=== PATIENT | female | born 1955 ===

== ENCOUNTER 2022-12-06 10:00 | Inpatient (IN) | payer OTHER ==
[~2022-12-06] VITALS: Ht 160 cm; Wt 79.4 kg
[2022-12-06] MEDS ORDERED: METFORMIN HCL1000 M2 PO (14:15)
[2022-12-06] MEDS ORDERED: LIPITOR20 MG PO (14:15)
[2022-12-06] MEDS ORDERED: GABAPENTIN100 MG (14:16)
[2022-12-06] MEDS ORDERED: LEVO-T25 MCG PO (14:16)
[2022-12-06] MEDS ORDERED: ACID REDUCER20 M1 PO (14:16)
[2022-12-12] MEDS ORDERED: HYOSCYAMINE0.125 M1 SL (10:22)
[2022-12-12] MEDS ORDERED: GABAPENTIN300 M2 PO (10:23)
== END 2022-12-12 11:21 | disposition home or self-care (01) | DRG 331 ==
LOC: SURH 12-09 07:00 → O/R 12-09 10:00 → SURH 12-09 21:25
PROVIDERS: ADMIT Surgery; ATTEND Surgery
PROC: 0DBP4ZZ Excision of Rectum, Percutaneous Endoscopic Approach (ICD-10-PCS; 2022-12-09)
PROC: 0DJD8ZZ Inspection of Lower Intestinal Tract, Via Natural or Artificial Opening Endoscopic (ICD-10-PCS; 2022-12-09)
PROC: 0DTN4ZZ Resection of Sigmoid Colon, Percutaneous Endoscopic Approach (ICD-10-PCS; principal; 2022-12-09 07:00)
DX: K57.32 Diverticulitis of large intestine without perforation or abscess without bleeding (principal); R19.4 Change in bowel habit; I10 Essential (primary) hypertension; Z20.822 Contact with and (suspected) exposure to COVID-19; E11.9 Type 2 diabetes mellitus without complications; Z79.4 Long term (current) use of insulin

== ENCOUNTER 2024-11-26 07:06 | Day surgery (SDC) | payer OTHER ==
[2024-11-22 10:54] LABS: HEMATOCRIT 39.4 % (36.0-45.00); HEMOGLOBIN 13.3 g/dL (12.0-15.00); MEAN CELL VOLUME 88.4 fL (80.00-100.00); MEAN CORPUSCULAR HEMOGLOBIN 29.9 pg (27.00-32.0); MEAN CORPUSCULAR HGB CONC 33.8 g/dl (32.0-36.0); PLATELET COUNT 202 K/uL (150-450); RED BLOOD COUNT 4.46 M/uL (4.00-6.00); RED CELL DISTRIBUTION WIDTH 13.9 % (11.5-14.5)
[2024-11-22 11:20] LABS: INR 1.03; PARTIAL THROMBOPLASTIN TIME 26.7 SECONDS (22.0-34.0); PROTHROMBIN TIME 11.2 SECONDS (9.0-11.5)
[2024-11-22 12:31] LABS: ALBUMIN 3.9 gm/dL (3.4-5.0); BILIRUBIN TOTAL 0.97 mg/dL (0.3-1.2); CALCIUM 9.6 mg/dL (8.5-10.1); CREATININE SERUM 0.64 mg/dL (0.55-1.02); GFR 92.28; GLOBULINA 3.7 G/DL (2.4-3.5); POTASSIUM 4.48 mEq/L (3.5-5.1); TOTAL PROTEIN 7.6 gm/dL (6.4-8.2)
[~2024-11-26 07:06] MED LIST: ACID REDUCER20 M1 PO; GABAPENTIN100 MG; GABAPENTIN300 M2 PO; HYOSCYAMINE0.125 M1 SL; LEVO-T25 MCG PO; LIPITOR20 MG PO; METFORMIN HCL1000 M2 PO
[2024-11-26] MEDS ORDERED: CEFTRIAXONE SODIUM 2,000 MG VIAL ONE (09:26)
[2024-11-26] MEDS ORDERED: METRONIDAZOLE/SODIUM CHLORIDE 500 MG/100 ML PIGGYBACK IV ONE (09:27)
[2024-11-26] MEDS ORDERED: BUPIVACAINE HCL/MPF 0.5% 30ML VIAL ONE (14:25)
[2024-11-26] MEDS ORDERED: LIDOCAINE HCL 1%/EPINEPHRINE 20ML VIAL IJ ONE ×3 (14:25→15:45)
[2024-11-26] MEDS ORDERED: BUPIVACAINE HCL/Mpf 0.5% 10ML VIAL ONE (15:29)
[2024-11-26] MEDS ORDERED: BUPIVACAINE HCL 30 ML VIAL IJ ONE (15:45)
[2024-11-26] MEDS ORDERED: TRAM1TAB98 PO (15:55)
== END 2024-11-26 17:40 | disposition home or self-care (01) ==
LOC: CIR.AMB 07:06
PROVIDERS: ATTEND Surgery
DX: R15.9 Full incontinence of feces (principal); R19.4 Change in bowel habit; K57.32 Diverticulitis of large intestine without perforation or abscess without bleeding; R10.32 Left lower quadrant pain; E78.5 Hyperlipidemia, unspecified; Z88.6 Allergy status to analgesic agent
CPT/HCPCS: 64581; 95972; C1778

== ENCOUNTER 2024-12-10 06:37 | Day surgery (SDC) | payer OTHER ==
[~2024-12-10 06:37] MED LIST changes: +TRAM1TAB98 PO
[2024-12-10] MEDS ORDERED: BUPIVACAINE HCL/MPF 0.5% 30ML VIAL ONE (12:05)
[2024-12-10] MEDS ORDERED: LIDOCAINE HCL 1%/EPINEPHRINE 20ML VIAL IJ ONE (12:05)
[2024-12-10] MEDS ORDERED: TRAM1TAB98 PO (12:58)
[2024-12-10] MEDS ORDERED: CEFAZOLIN SODIUM 1,000 MG VIAL IV ONE (13:00)
== END 2024-12-10 16:25 | disposition home or self-care (01) ==
LOC: CIR.AMB 06:37
PROVIDERS: ATTEND Surgery
DX: R15.9 Full incontinence of feces (principal)
CPT/HCPCS: 64590; 95972; C1767